=== PATIENT | female | born 1935 | race Caucasian/White ===

== ENCOUNTER → 2016-11-04 | Outpatient (CLI) | payer OTHER ==
[~2016-11-04] MED LIST: ACETAMINOPHEN325 M1 PO; ADULT LOW DOSE81 MG PO; ALDACTONE25 MG PO; APAP W/CODEINE1 TA2 PO; APAP650 PO; ARICEPT 5 MG TAB5 MG PO; CALCIUM 500 +1 EAC5 PO; CALCIUM PO; COLACE100 MG PO; CORTEF5 MG PO; COUMADIN 3 MG TA3 M1 PO; DESYREL100 MG PO; ENOXAPARIN40 MG/0.1 SUBQ; ETODOLAC 400 M400 M1 PO; ETODOLAC 400 M400 MG PO; FLEXERIL PO; FOLIC ACID1 MG PO; FOSAMAX 70 MG T70 M1 PO; HYDROCODON-ACE1 EAC7 PO; HYDROCODONE-AP1 EAC6 PO; HYDROCORTISONE PO; HYDROXYCHLOROQ200 M1 PO; K-DUR10 ME1 PO; KEFLEX500 MG PO; KLOR-CON 1010 MEQ PO; LAMICTAL XR100 MG PO; LASIX 20 MG TAB20 MG PO; LASIX 40 MG TAB40 M1 PO; LASIX 40 MG TAB40 M2 PO; LAXATIVE5 M1 PO; LOSARTAN POTASS25 MG PO; LUMIGAN2.5 M1 OPHTHALMIC; MELATONIN5 M1 PO; METAMUCIL0.52 GM PO; METHOTREXATE 22.5 MG PO; MIRALAX255 GM PO; NEURONTIN 300300 M1 PO; NEURONTIN 300M300 M2 PO; NORCO 5-325 TA1 EACH PO; PERCOCET 5-3251 EACH PO; PRILOSEC 20 MG20 MG PO; PROPRANOLOL 1010 MG PO; ROBAXIN 750 MG750 MG PO; ROXICODONE5 M1 PO; SERTRALINE HCL50 MG PO; SIMVASTATIN40 MG PO; TRAMADOL 50 MG50 MG PO; TRAZODONE 150150 M1 PO; TYLENOL EX-STR500 M2 PO; VITAMIN D1000 UNI1 PO; VITAMIN D10000 UNIT PO
== END ==
LOC: HYPER 07:16
DX: S81.801D Unspecified open wound, right lower leg, subsequent encounter (principal); I82.593 Chronic embolism and thrombosis of other specified deep vein of lower extremity, bilateral; K21.9 Gastro-esophageal reflux disease without esophagitis; F31.9 Bipolar disorder, unspecified; Z96.653 Presence of artificial knee joint, bilateral; Z90.710 Acquired absence of both cervix and uterus; Z96.641 Presence of right artificial hip joint; Z96.619 Presence of unspecified artificial shoulder joint; Z72.89 Other problems related to lifestyle; X58.XXXD Exposure to other specified factors, subsequent encounter

== ENCOUNTER 2017-02-24 16:44 | Inpatient (IN) | payer OTHER ==
[~2017-02-24] VITALS: Ht 162.6 cm; Wt 85.7 kg
--- NOTE | ~2017-02-24 | EKG ---
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 : 1935 Requested By: Abby Hernandez Order Number: [id number] MD: Keven Sheehan Measurements Intervals [place] Rate: 87 P: 45 [place]: 190 QRS: 4 QRSD: 83 T: 90 QT: 353 QTc: 425 Interpretive Statements Sinus rhythm Atrial premature complex Compared to ECG 05/08/2011 07:23:46 Atrial premature complex(es) now present Electronically Signed On 02-25-2017 7:33:15 CDT by Keven Sheehan [email or web address] <ELECTRONICALLY SIGNED> By: Keven Sheehan MD, [facility] 02/25/17 0733 54 54 Keven Sheehan MD, [facility] /EPI
[~2017-02-24 16:44] MED LIST changes: +ASPIR 8181 MG PO; +OXYBUTYNIN 5 MG5 M2 PO; +TIMOLOL MA0.25 %/5 M OTIC
[2017-02-24 16:45] VITALS: BP 136/72
[2017-02-24 18:13] LABS: URINE BILIRUBIN NEGATIVE (Negative); URINE BLOOD NEGATIVE (Negative); URINE COLOR YELLOW; URINE GLUCOSE-RANDOM* NEGATIVE (Negative); URINE KETONES 1+ (Negative); URINE NITRITE NEGATIVE (Negative); URINE PROTEIN (DIPSTICK) NEGATIVE (Negative); URINE UROBILINOGEN 0.2 E.U./dl (0.2-1.0)
[2017-02-24 18:19] LABS: HEMOGLOBIN 11.6 gm/dL (12.0-15.0); MCH 27.6 pg (26.0-34.0); MCHC 32.3 g/dL (28.0-37.0); MCV 85.5 fL (80.0-100.0); PLATELET COUNT 209 thou/uL (150-400); RBC 4.21 mil/uL (4.20-5.00); RDW 25.8 % (10.5-14.5); WBC 5.3 thou/uL (4.0-11.0)
[2017-02-24 18:20] LABS: MANUAL DIFF YES
[2017-02-24 18:24] LABS: ANION GAP 13 mmol/L (7-16); BUN 11 mg/dL (7-18); CHLORIDE 100 mmol/L (98-107); CO2 24 mmol/L (21-32); GLUCOSE 108 mg/dL (74-106); POTASSIUM 3.9 mmol/L (3.5-5.1); SODIUM 137 mmol/L (136-145)
[2017-02-24 18:25] LABS: PROTIME 10.8 Seconds (9.3-11.4)
[2017-02-24 18:30] LABS: ALBUMIN 3.9 g/dL (3.4-5.0); ALKALINE PHOSPHATASE 55 U/L (46-116); SGOT 41 U/L (15-37); SGPT 23 U/L (30-65); TOTAL BILIRUBIN 0.7 mg/dL (<0.1-1.0); TROPONIN-I < 0.04 ng/mL (<0.04-0.07)
[2017-02-24 18:39] LABS: ABSOLUTE NEUTROPHILS 3.5 thou/uL (1.4-8.2); TOTAL CELL COUNT 100
[2017-02-24 18:40] LABS: ANISOCYTOSIS 1+
[2017-02-24 20:20] VITALS: BP 121/78
[2017-02-24 20:40] VITALS: BP 129/44
[2017-02-24] MEDS ORDERED: XARELTO20 MG PO (21:01)
[2017-02-25 05:10] VITALS: BP 146/63
[2017-02-25 07:20] VITALS: BP 122/68
[2017-02-25 15:25] VITALS: BP 129/50
[2017-02-25 19:40] VITALS: BP 144/69
[2017-02-26 04:15] VITALS: BP 146/67
[2017-02-26 07:01] LABS: HEMATOCRIT 31.6 % (37.0-47.0); HEMOGLOBIN 10.5 gm/dL (12.0-15.0); MCH 27.9 pg (26.0-34.0); MCHC 33.3 g/dL (28.0-37.0); RBC 3.76 mil/uL (4.20-5.00); RDW 25.1 % (10.5-14.5); WBC 7.9 thou/uL (4.0-11.0)
[2017-02-26 07:23] LABS: CALCIUM 8.1 mg/dL (8.5-10.1); CREATININE 0.7 mg/dL (0.6-1.0); POTASSIUM 4.2 mmol/L (3.5-5.1)
[2017-02-26 07:28] VITALS: BP 143/60
[2017-02-26 15:35] VITALS: BP 136/61
[2017-02-26 19:50] VITALS: BP 137/63
[2017-02-27 04:52] VITALS: BP 156/68
[2017-02-27 08:31] VITALS: BP 148/70
[2017-02-27] MEDS ORDERED: AUGMENTIN 875875 MG PO (10:45)
[2017-02-27] MEDS ORDERED: PROBIOTIC1 EAC1 PO (10:45)
[2017-02-27] MEDS ORDERED: VENTOLIN HFA 1818 GM INH (10:46)
[2017-02-27 10:55] VITALS: BP 148/70
[2017-02-27 11:35] VITALS: BP 148/70
[2017-02-27 12:45] VITALS: BP 148/70
== END 2017-02-27 12:47 | disposition home health service (06) | DRG 871 ==
LOC: ER 16:44 → EROBS 19:12 → 4S 19:12
PROVIDERS: Family Medicine; Physician Assistant
DX: A41.9 Sepsis, unspecified organism (principal); J18.9 Pneumonia, unspecified organism; J96.01 Acute respiratory failure with hypoxia; L03.119 Cellulitis of unspecified part of limb; I82.409 Acute embolism and thrombosis of unspecified deep veins of unspecified lower extremity; K21.9 Gastro-esophageal reflux disease without esophagitis; M19.90 Unspecified osteoarthritis, unspecified site; M06.9 Rheumatoid arthritis, unspecified; D64.9 Anemia, unspecified; H40.9 Unspecified glaucoma; F31.9 Bipolar disorder, unspecified; Z96.642 Presence of left artificial hip joint; E78.5 Hyperlipidemia, unspecified; I87.8 Other specified disorders of veins; G89.29 Other chronic pain; S81.812A Laceration without foreign body, left lower leg, initial encounter; Z96.612 Presence of left artificial shoulder joint; Z96.653 Presence of artificial knee joint, bilateral; X58.XXXA Exposure to other specified factors, initial encounter; Y93.89 Activity, other specified; Y92.89 Other specified places as the place of occurrence of the external cause; Y99.8 Other external cause status; Z90.710 Acquired absence of both cervix and uterus; Z90.49 Acquired absence of other specified parts of digestive tract; Z98.42 Cataract extraction status, left eye; Z98.41 Cataract extraction status, right eye; Z88.2 Allergy status to sulfonamides; Z88.8 Allergy status to other drugs, medicaments and biological substances; Z83.3 Family history of diabetes mellitus; Z79.82 Long term (current) use of aspirin; Z79.899 Other long term (current) drug therapy
CPT/HCPCS: 10195

== ENCOUNTER 2017-02-28 14:43 | Inpatient (IN) | payer OTHER ==
[~2017-02-28] VITALS: Ht 157.5 cm; Wt 81.6 kg
--- NOTE | ~2017-02-28 | HC ---
[facility] [place] [address] CONSULTATION Name: JAI JIM Room #: 428-P ADM IN M.R.#: [id number] Admission: 02/28/17 Attend Phys: Maribell Beavers MD Discharge: Date of : 37 Report #: [id number] THIS REPORT FOR: //name// CC: Fernie Beavers DATE OF SERVICE: 02/28/2017 REFERRING PROVIDER: Maribell Beavers M.D. REASON FOR CONSULTATION: Pneumonia. CHIEF COMPLAINT: Weakness. HISTORY OF PRESENT ILLNESS: Our group was asked to evaluate the patient in consultation while hospitalized at [facility], seen in the Emergency Department room #3, at the request of the consulting providers. The patient is a very pleasant 81-year-old woman without any past pulmonary history who was just recently hospitalized and discharged yesterday after a 3-day hospital stay for pneumonia. The patient was discharged home on a handheld albuterol inhaler as well as antibiotics. The patient noted this morning an inability to even stand, was feeling too weak, continues to have some cough, but difficulty clearing sputum. States she could not sleep at all last night due to significant wheezing. Denies any fevers, chills or sweats at this time. No prior pulmonary history. The patient is a never smoker and has no chronic respiratory ailments. She typically lives alone and had to call an ambulance to come assist with her getting into the hospital. Of note, the patient has had some difficulty with recurrent cellulitis. She states she often will have clumsy walking and her leg may be injured on her walker and also had some chronic lower extremity edema, which is likely contributing to this. Currently is also on therapy for the cellulitis. ALLERGIES: Include TAPE, SULFA AND ERYTHROMYCIN. PAST MEDICAL HISTORY: 1. Obesity. 2. History of lower extremity cellulitis. 3. Recent pneumonia. 4. History of deep venous thrombosis, currently chronically anticoagulated on Xarelto. 5. Glaucoma. 6. Hyperlipidemia. 7. Gastroesophageal reflux disease. 8. History of orthostatic hypotension. 9. Osteoarthritis. 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 No significant alcohol consumption. FAMILY HISTORY: Noncontributory due to advanced age. REVIEW OF SYSTEMS: CONSTITUTIONAL: Notes no fever or chills. ENT: No upper respiratory congestion, rhinorrhea or dysphagia. CARDIOVASCULAR: Denies any chest pains or palpitations. GASTROINTESTINAL: No nausea, vomiting, diarrhea, constipation or abdominal pain. GENITOURINARY: No urinary frequency, dysuria, hematuria. INTEGUMENT: Has recent cellulitis noted with left lower extremity dressing. MUSCULOSKELETAL: Generalized weakness with an inability to stand earlier today. PHYSICAL EXAMINATION: VITAL SIGNS: The patient's temperature is 99.8, pulse 90, respiratory rate 22, blood pressure 137/50, oxygen saturation 90 to 91 on 2 liters nasal cannula. GENERAL: This is a pleasant, obese, elderly woman, appears obviously fatigued and weak, but in no other distress. ENT: Clear oropharynx. No thrush. NECK: Supple, no lymphadenopathy. LUNGS: Reveal diffuse expiratory rhonchi and wheezes noted throughout. No inspiratory crackles appreciated. Respirations do not appear labored at rest. CARDIOVASCULAR: Heart was regular. I could not appreciate any murmurs, although difficult to auscultate due to the noisy respirations. ABDOMEN: Obese, soft, nontender, no masses, no hepatosplenomegaly noted. EXTREMITIES: Revealed 2+ lower extremity edema. The left lower extremity had a dressing over the anterior surface distally, I did not remove it to evaluate. LABORATORY DATA: Chemistry profile within reasonable limits. Liver enzymes slightly low, but otherwise normal. Calcium at 8.0, total protein 5.9, albumin 3.2. ProBNP 3500, INR 1.1. White blood cell count 7000, hemoglobin 10, hematocrit 31, platelet count 158. 22% lymphocytes, 10% monocytes, no significant eosinophilia. Arterial blood gas on 3 liters revealed pH of 7.48, pCO2 of 38, pO2 of 58, bicarbonate of 27. IMPRESSION: 1. Community-acquired pneumonia with failure of outpatient management either due to ongoing bronchospasm or associated with microorganism refractory to current therapy. I agree with plans to broaden antimicrobial therapy, continue with bronchodilators and continue with systemic steroids and await further cultures and nasal swab for respiratory viral panel. 2. History of deep venous thrombosis. 3. Acute hypoxemic respiratory failure secondary to the above. [facility] [address] [place] [address] CONSULTATION Name: JAI JIM Room #: 428-P [facility] IN M.R.#: [id number] Admission: 02/28/17 Attend Phys: Maribell Beavers MD Discharge: Date of : 37 Report #: [id number] 4. Obesity. 5. History of hypertension. SUGGESTIONS: As outlined above. We will follow along with you, add continuous oximetry while on critical care telemetry floor. Thank you for requesting our suggestions. <ELECTRONICALLY SIGNED> By: Dewayne Wing MD 03/03/17 1453 [id number] 0131 Dewayne Wing MD /nt
--- NOTE | ~2017-02-28 | H ---
[facility] [place] [address] HISTORY AND PHYSICAL Name: JAI JIM Room #: 428-P ADM IN M.R.#: [id number] Admission: 02/28/17 Attend Phys: Maribell Beavers MD Discharge: Date of : 37 Report #: [id number] THIS REPORT FOR: //name// CC: Fernie Beavers DATE OF SERVICE: 02/28/2017 CHIEF COMPLAINT: Weakness and shortness of breath. HISTORY OF PRESENT ILLNESS: The patient is a 81-year-old female, with multiple medical problems, who was just hospitalized here for pneumonia, and discharged home yesterday. The patient was treated for community-acquired pneumonia. The patient was discharged home on oral antibiotics. She stated that she was supposed to go to the snf in few days. She currently is at home. She has been very weak, and was unable to take care of herself. She presented to the emergency room. In the ER, the patient has low grade fever, oxygen saturation is in mid 80s, chest x-ray shows cardiomegaly with possible vascular congestion. No focal infiltrates are reported. On oxygen that was administered in the emergency room, the patient feels somewhat better. She has been hemodynamically stable. PAST MEDICAL HISTORY: 1. Rheumatoid arthritis. 2. Bipolar disease and depression. 3. Orthostatic hypotension. 4. Deep venous thrombosis. 5. Questionable adrenal insufficiency. 6. Chronic bilateral lower extremity ulcers. CURRENT MEDICATIONS: Reviewed and documented in the patient's chart. Please refer to the medication reconciliation list. FAMILY HISTORY: Reviewed and not pertinent to the patient's current condition. SOCIAL HISTORY: The patient lives by herself. She does not smoke cigarettes and does not drink alcohol. PHYSICAL EXAMINATION: GENERAL: The patient is an elderly female, who is in no apparent distress. VITAL SIGNS: Her blood pressure is 137/50, heart rate is 91, respiration is 22, temperature is 99.0. HEENT: Pupils are equal. Eye movements are normal. The patient has anicteric sclerae. NECK: Supple. Oral mucosa is moist. Ear examination is deferred. The patient [facility] [address] [place] [address] HISTORY AND PHYSICAL Name: JAI JIM Room #: 428-P [facility] IN .R.#: [id number] Admission: 02/28/17 Attend Phys: Maribell Beavers MD Discharge: Date of : 37 Report #: [id number] has no JVD. Thyromegaly is not palpated. RESPIRATORY: The patient has coarse respiratory sounds bilaterally. She has scattered crackles. CARDIOVASCULAR: The patient has regular rhythm and rate. She has no murmurs, gallops, or rubs. GASTROINTESTINAL: Abdomen is soft, nondistended, and nontender. Bowel sounds are present. The patient has no hepatomegaly or splenomegaly. MUSCULOSKELETAL: The patient has normal range of motion. She has 1+ pitting edema in the lower extremities. NEUROLOGIC: The patient is alert and oriented times 2. She has no motor or sensory deficits. SKIN: The patient has chronic stasis discoloration on lower extremities. LABORATORY DATA: Basic metabolic profile, the patient has mild hypokalemia with potassium of 3.4. Rest of the BMP is normal. BNP is elevated at 3521. Albumin is 3.2. On CBC, white count is normal at 7.5, hemoglobin 10.3, hematocrit 31.4, platelets 158. On chest x-ray, the patient has bilateral vascular congestion, without focal infiltrates. Chest x-ray also shows cardiomegaly. On EKG, the patient has normal sinus rhythm. ASSESSMENT AND PLAN: 1. Healthcare-associated pneumonia. As noted, the patient was discharged home yesterday after she was treated here for community-acquired pneumonia, and her condition became worse. The patient will be admitted to the hospital, and will be treated with broad spectrum antibiotics. New blood cultures will be obtained. 2. Acute respiratory failure due to above, with oxygen saturation in mid 80s. The patient will be continued on supplemental oxygen, and breathing treatments. Senior Search Marketing Analyst is consulted. Input is very much appreciated. 3. History of adrenal insufficiency, details are not specified. Adrenocorticotropic hormone stimulation test from 2010 was abnormal. The patient is on hydrocortisone at home, 5 mg at dinner. While here, and during respiratory failure, we will use stress dose steroids IV. 4. History of deep venous thrombosis. A few months ago, the patient had bilateral Doppler ultrasound, that was negative. The patient is on Xarelto, that will be continued unchanged. 5. No previous history of congestive heart failure. Now, the patient presents with cardiomegaly on chest x-ray, and bilateral basilar vascular congestion. Cardiac echo will be obtained for further evaluation. The patient does not have clear evidence of volume overload at this time. [facility] [address] [place] [address] HISTORY AND PHYSICAL Name: JAI JIM Room #: 428-P ADM IN M.R.#: [id number] Admission: 02/28/17 Attend Phys: Maribell Beavers MD Discharge: Date of : 37 Report #: [id number] 6. Deep venous thrombosis prophylaxis. The patient is already on Xarelto. 7. Debility and weakness. Physical therapy and disease case manager rn evaluation. By: 1729 03 Maribell Beavers MD /nt
--- NOTE | ~2017-02-28 | 2DMMODE ---
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 Room #: 428 Blood Pressure: 156/77 mmHg HR: 65 bpm Rhythm: NSR Other Information Study Quality: Adequate Indications Dyspnea, cardiomegaly on Xray 2D Dimensions RVDd: 37.74 mm LVEF(%): 61.57 (>50%) IVSd: 9.98 (7-11mm) LVOT Diam: 21.49 (18-24mm) LVDd: 49.82 mm PWd: 8.57 (7-11mm) LVDs: 33.28 (25-40mm) Aortic Root: 34.23 mm Moses's LVEF: 61.57 % Volumes Left Atrial Volume (Systole) Single Plane 4CH: 68.85 mL Single Plane 2CH: 56.66 mL LA ESV Index: 39.00 mL/m2 Aortic Valve AoV Peak Tariq.: 1.66 m/s AO Peak Gr.: 10.99 mmHg LVOT Max P.89 mmHg LVOT Max V: 1.21 m/s STEPAN Vmax: 2.65 cm2 Mitral Valve E/A Ratio: 0.8 [facility] [address] [place] [address] 2 D/M-MODE ECHOCARDIOGRAM Name: JAI JIM Room #: 428-P [facility] IN [facility]#: [id number] Admission: 02/28/17 Attend Phys: Maribell Beavers Discharge: Date of : 37 Date of Service: 03/01/17 1109 Report #: [id number] MV Decel. Time: 241.66 ms MV E Max Tariq.: 0.87 m/s MV A Tariq.: 1.06 m/s MV PHT: 70.08 ms IVRT: 83.04 ms Pulmonary Valve PV Peak Tariq.: 0.91 m/s PV Peak Gr.: 3.29 mmHg Pulmonary Vein P Vein S: 0.77 m/s P Vein A: 0.44 m/s P Vein D: 0.34 m/s P Vein A Dur.: 115.3 msec P Vein S/D Ratio: 2.26 Tricuspid Valve TR Peak Tariq.: 2.96 m/s RAP Estimate: 5.00 mmHg TR Peak Gr.: 35.14 mmHg RVSP: 40.00 mmHg Left Ventricle The left ventricle is normal size. There is normal LV segmental wall motion. There is normal left ventricular wall thickness. Left ventricular systolic function is normal. LVEF is 55%. Grade I - abnormal relaxation pattern. Right Ventricle The right ventricle is normal size. The right ventricular systolic function is normal. Atria Left atrium is mildly dilated. The right atrium size is normal. Aortic Valve The aortic valve is not well visualized but appears grossly normal. No aortic regurgitation is present. There is no aortic valvular stenosis. Mitral Valve The mitral valve is normal in structure. Mild mitral regurgitation. Tricuspid Valve The tricuspid valve is normal in structure. There is mild tricuspid regurgitation. The right atrial pressure is estimated at 5 mmHg. There is mild-moderate pulmonary hypertension with an estimated PAP of 40mmHg. [place] [id number] 2 D/M-MODE ECHOCARDIOGRAM Name: JAI JIM Room #: 428-P [facility] IN .R.#: [id number] Admission: 02/28/17 Attend Phys: Maribell Beavers Discharge: Date of : 37 Date of Service: 03/01/17 1109 Report #: [id number] Pulmonic Valve Pulmonic valve is not well visualized. Great Vessels The aortic root is normal in size. Ascending aorta is not well visualized. IVC is normal in size and collapses >50% with inspiration. Pericardium There is no pericardial effusion. <Conclusion> Left ventricular systolic function is normal. There is normal LV segmental wall motion. LVEF is 55%. Grade I diastolic dysfunction Left atrium is mildly dilated. The aortic valve is not well visualized but appears grossly normal. There is no aortic valvular stenosis or insufficiency. The mitral valve is normal in structure .Mild mitral regurgitation. Estimated pulmonary artery pressure of 40mmHg. There is no pericardial effusion. <ELECTRONICALLY SIGNED> By: Keven Sheehan MD, FACC 03/01/17 1109 1109 1109 Keven Sheehan MD, FACC /INF
--- NOTE | ~2017-02-28 | EKG ---
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
[2017-02-28 14:43] VITALS: BP 137/50
[~2017-02-28 14:43] MED LIST changes: +AUGMENTIN 875875 MG PO; +PROBIOTIC1 EAC1 PO; +VENTOLIN HFA 1818 GM INH; +XARELTO20 MG PO
[2017-02-28 15:39] LABS: ABG SAMPLE TYPE ARTERIAL; BE(vivo) 3.4 mmol/L (-2 to +3); HCO3 27.1 mmol/L (22.0-26.0); LACTATE 1.15 mmol/L (0.5-2.0); O2(CT) 14.2 mL/dL (15.0-23.0); O2Hb 90.2 % (92.0-98.0); PCO2 37.6 mmHg (35.0-45.0); pH 7.475 (7.360-7.450); sO2 91.9 % (92.0-98.0); tCO2 28.2 mmol/L (24.0-30.0)
[2017-02-28 15:44] LABS: STICK SITE L.RADIAL
[2017-02-28 16:10] LABS: CREATININE 0.9 mg/dL (0.6-1.0); POTASSIUM 3.4 mmol/L (3.5-5.1)
[2017-02-28 16:17] LABS: ALBUMIN 3.2 g/dL (3.4-5.0); TOTAL BILIRUBIN 0.5 mg/dL (<0.1-1.0); TOTAL PROTEIN 5.9 g/dL (6.4-8.2); TROPONIN-I 0.07 ng/mL (<0.04-0.07)
[2017-02-28 16:50] LABS: BASOPHILS 0.2 % (0.0-2.0); EOSINOPHILS 0.1 % (0.0-3.0); HEMATOCRIT 31.4 % (37.0-47.0); HEMOGLOBIN 10.3 gm/dL (12.0-15.0); LYMPHOCYTES 21.7 % (24.0-44.0); MCH 27.7 pg (26.0-34.0); MCHC 32.9 g/dL (28.0-37.0); MCV 84.1 fL (80.0-100.0); MONOCYTES 10.7 % (1.0-8.0); PLATELET COUNT 158 thou/uL (150-400); POLYS 67.3 % (36.0-66.0); RBC 3.73 mil/uL (4.20-5.00); RDW 26.1 % (10.5-14.5); WBC 7.5 thou/uL (4.0-11.0)
[2017-02-28 16:56] LABS: MANUAL DIFF NO
[2017-02-28 17:05] LABS: APTT 25.1 Seconds (24.5-32.8); INR 1.1; PROTIME 10.7 Seconds (9.3-11.4)
[2017-02-28 17:10] LABS: OVALOCYTES 1+
[2017-02-28 17:11] LABS: ANISOCYTOSIS 2+; MICROCYTES 1+
[2017-02-28 19:30] VITALS: BP 166/85
[2017-03-01 04:00] VITALS: BP 156/77
[2017-03-01 05:04] LABS: ABSOLUTE NEUTROPHILS 5.1 thou/uL (1.4-8.2); BASOPHILS 0.1 % (0.0-2.0); HEMATOCRIT 33.3 % (37.0-47.0); HEMOGLOBIN 10.8 gm/dL (12.0-15.0); LYMPHOCYTES 10.3 % (24.0-44.0); MCH 27.3 pg (26.0-34.0); MCHC 32.3 g/dL (28.0-37.0); MCV 84.6 fL (80.0-100.0); MONOCYTES 5.1 % (1.0-8.0); PLATELET COUNT 153 thou/uL (150-400); POLYS 84.5 % (36.0-66.0); RBC 3.94 mil/uL (4.20-5.00); RDW 25.5 % (10.5-14.5); WBC 6.1 thou/uL (4.0-11.0)
[2017-03-01 05:10] LABS: MANUAL DIFF NO
[2017-03-01 05:24] LABS: CALCIUM 7.9 mg/dL (8.5-10.1); CREATININE 0.9 mg/dL (0.6-1.0); POTASSIUM 3.6 mmol/L (3.5-5.1)
[2017-03-01 08:50] LABS: ANISOCYTOSIS 2+; OVALOCYTES 1+; POIKILOCYTOSIS 1+
[2017-03-01 08:51] LABS: POLYCHROMASIA OCCASIONAL
[2017-03-01 16:00] VITALS: BP 138/60
[2017-03-01 20:00] VITALS: BP 138/57
[2017-03-02 01:04] VITALS: BP 138/57
[2017-03-02 04:30] VITALS: BP 127/65
[2017-03-02 07:45] VITALS: BP 122/58
[2017-03-02 20:00] VITALS: BP 129/54
[2017-03-02 22:11] VITALS: BP 129/54
[2017-03-03 04:08] VITALS: BP 156/60
[2017-03-03 06:41] LABS: HEMOGLOBIN 10.5 gm/dL (12.0-15.0); MCH 27.6 pg (26.0-34.0); MCHC 32.8 g/dL (28.0-37.0); MCV 84.1 fL (80.0-100.0); RBC 3.8 mil/uL (4.20-5.00); RDW 25.2 % (10.5-14.5); WBC 7.4 thou/uL (4.0-11.0)
[2017-03-03 06:54] LABS: CALCIUM 8.9 mg/dL (8.5-10.1)
[2017-03-03 08:04] VITALS: BP 147/53
[2017-03-03 15:20] VITALS: BP 118/63
[2017-03-03 20:30] VITALS: BP 153/105
[2017-03-04 04:30] VITALS: BP 150/86
[2017-03-04 04:36] LABS: HEMATOCRIT 31.4 % (37.0-47.0); HEMOGLOBIN 10.3 gm/dL (12.0-15.0); MCH 27.6 pg (26.0-34.0); MCHC 32.8 g/dL (28.0-37.0); MCV 84.2 fL (80.0-100.0); RBC 3.73 mil/uL (4.20-5.00); RDW 24.9 % (10.5-14.5)
[2017-03-04 04:52] LABS: CALCIUM 9.2 mg/dL (8.5-10.1); POTASSIUM 4.5 mmol/L (3.5-5.1)
[2017-03-04 07:31] VITALS: BP 169/61
[2017-03-04] MEDS ORDERED: NYSTATIN 1100000 U/M SWISH&SPIT (14:33)
[2017-03-04] MEDS ORDERED: MUCINEX TA600 MG/TA2 PO (14:33)
[2017-03-04] MEDS ORDERED: MIRALAX17 GM PO (14:33)
[2017-03-04] MEDS ORDERED: LEVAQUIN 500 M500 M2 PO (14:33)
[2017-03-04] MEDS ORDERED: DUONEB 2.5-0.5 M3 ML INH (14:33)
[2017-03-04] MEDS ORDERED: CEPACOL SORE T1 EAC7 PO (14:33)
[2017-03-04] MEDS ORDERED: DULCOLAX5 MG PO ×2 (14:33→14:40)
[2017-03-04] MEDS ORDERED: PREDNISONE 10 M10 MG PO (14:38)
== END 2017-03-04 17:50 | DRG 177 ==
LOC: ER 14:43 → EROBS 17:04 → 4E 17:04
PROVIDERS: Hospitalist; Internal Medicine Endocrinology, Diabetes & Metabolism; Physician Assistant
DX: J69.0 Pneumonitis due to inhalation of food and vomit (principal); J96.01 Acute respiratory failure with hypoxia; I50.33 Acute on chronic diastolic (congestive) heart failure; J98.11 Atelectasis; L97.929 Non-pressure chronic ulcer of unspecified part of left lower leg with unspecified severity; L97.919 Non-pressure chronic ulcer of unspecified part of right lower leg with unspecified severity; E27.40 Unspecified adrenocortical insufficiency; J15.6 Pneumonia due to other Gram-negative bacteria; K59.00 Constipation, unspecified; I27.2 Other secondary pulmonary hypertension; K21.9 Gastro-esophageal reflux disease without esophagitis; M19.90 Unspecified osteoarthritis, unspecified site; H40.9 Unspecified glaucoma; E66.9 Obesity, unspecified; E78.5 Hyperlipidemia, unspecified; I11.0 Hypertensive heart disease with heart failure; F31.9 Bipolar disorder, unspecified; Z96.653 Presence of artificial knee joint, bilateral; Z96.641 Presence of right artificial hip joint; Z96.612 Presence of left artificial shoulder joint; Z60.2 Problems related to living alone; Z91.048 Other nonmedicinal substance allergy status; Z86.718 Personal history of other venous thrombosis and embolism; Z90.49 Acquired absence of other specified parts of digestive tract; Z90.710 Acquired absence of both cervix and uterus; Z87.81 Personal history of (healed) traumatic fracture; Z98.41 Cataract extraction status, right eye; Z98.42 Cataract extraction status, left eye; Z68.32 Body mass index [BMI] 32.0-32.9, adult; Z79.01 Long term (current) use of anticoagulants; Z79.899 Other long term (current) drug therapy; Z88.1 Allergy status to other antibiotic agents; Z88.2 Allergy status to sulfonamides
CPT/HCPCS: 10183

== ENCOUNTER → 2017-03-27 | Outpatient (CLI) | payer OTHER ==
[~2017-03-27] MED LIST changes: +CEPACOL SORE T1 EAC7 PO; +DULCOLAX5 MG PO; +DUONEB 2.5-0.5 M3 ML INH; +LEVAQUIN 500 M500 M2 PO; +MIRALAX17 GM PO; +MUCINEX TA600 MG/TA2 PO; +NYSTATIN 1100000 U/M SWISH&SPIT; +PREDNISONE 10 M10 MG PO
== END ==
LOC: RAD 08:18
DX: J18.9 Pneumonia, unspecified organism (principal)

== ENCOUNTER 2017-05-23 19:00 | Inpatient (IN) | payer OTHER ==
[~2017-05-23] VITALS: Ht 157.5 cm; Wt 88.6 kg
--- NOTE | ~2017-05-23 | EKG ---
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
--- NOTE | ~2017-05-23 | 2DMMODE ---
[facility] [address] [place] [address] 2 D/M-MODE ECHOCARDIOGRAM Name: JAI JIM Josefa Room #: 453-P [facility] IN ..#: [id number] Admission: 05/23/17 Attend Phys: Sorin Mathew, Discharge: Date of : 39 Date of Service: 05/28/17 1231 Report #: [id number] THIS REPORT FOR: //name// APPROVED REPORT Study performed: 05/28/2017 09:13:13 EXAM: Comprehensive 2D, Doppler, and color-flow Echocardiogram Patient Location: Bedside Room #: [facility] Status: routine BSA: 1.89 HR: 72 bpm BP: 93/67 mmHg Other Information Study Quality: Fair Indications Edema Hx HTN, syncope 2D Dimensions RVDd: 38.55 mm LVEF(%): 72.93 (>50%) IVSd: 12.68 (7-11mm) LVOT Diam: 19.76 (18-24mm) LVDd: 35.91 mm PWd: 13.17 (7-11mm) Ascending Ao: 28.08 (22-36mm) LVDs: 21.14 (25-40mm) Aortic Root: 29.34 mm IVC: 2.00 mm Moses's LVEF: 72.93 % Volumes Left Atrial Volume (Systole) Single Plane 4CH: 56.79 mL Single Plane 2CH: 67.31 mL LA ESV Index: 37.00 mL/m2 Aortic Valve AoV Peak Tariq.: 1.54 m/s AO Peak Gr.: 9.48 mmHg LVOT Max P.36 mmHg LVOT Max V: 1.16 m/s STEPAN Vmax: 2.30 cm2 Mitral Valve E/A Ratio: 0.8 MV Decel. Time: 213.12 ms MV E Max Tariq.: 0.79 m/s [facility] [place] [address] 2 D/M-MODE ECHOCARDIOGRAM Name: JAI JIM Room #: 453-P [facility] IN ..#: [id number] Admission: 05/23/17 Attend Phys: Sorin Mathew, Discharge: Date of : 39 Date of Service: 05/28/17 1231 Report #: [id number] MV A Tariq.: 0.95 m/s MV PHT: 61.80 ms IVRT: 78.43 ms Pulmonary Vein P Vein S: 0.59 m/s P Vein A: 0.34 m/s P Vein D: 0.35 m/s P Vein A Dur.: 147.6 msec P Vein S/D Ratio: 1.69 Tricuspid Valve TR Peak Tariq.: 2.73 m/s RAP Estimate: 5.00 mmHg TR Peak Gr.: 29.78 mmHg PA Pressure: 35.00 mmHg Left Ventricle The left ventricle is normal size. Mild concentric left ventricular hypertrophy. The left ventricular systolic function is normal. The left ventricular ejection fraction is within the normal range. LVEF is 60%. Grade I - abnormal relaxation pattern. Right Ventricle The right ventricle is normal size. The right ventricular systolic function is normal. Atria Left atrium is dilated. Right atrium is dilated. Aortic Valve The aortic valve is not well visualized. No aortic regurgitation is present. There is no aortic valvular stenosis. Mitral Valve The mitral valve is normal in structure. Trace mitral regurgitation. No evidence of mitral valve stenosis. Tricuspid Valve The tricuspid valve is normal in structure. There is trace tricuspid regurgitation. The right atrial pressure is estimated at 5 mmHg. There is mild pulmonary hypertension with an estimated PAP of 35 mmHg. Pulmonic Valve The pulmonary valve is normal in structure. There is no pulmonic valvular regurgitation. Great Vessels [facility] [address] [place] [address] 2 D/M-MODE ECHOCARDIOGRAM Name: JAI JIM Room #: 453-P [facility] IN .R.#: [id number] Admission: 05/23/17 Attend Phys: Sorin Mathew, Discharge: Date of : 39 Date of Service: 05/28/17 1231 Report #: [id number] The aortic root is normal in size. The ascending aorta is normal in size. IVC is normal in size and collapses >50% with inspiration. Pericardium There is no pericardial effusion. <Conclusion> The left ventricle is normal size. Mild concentric left ventricular hypertrophy. The left ventricular systolic function is normal. The left ventricular ejection fraction is within the normal range. The right ventricle is normal size. Grade I - abnormal relaxation pattern. There is no aortic valvular stenosis. Trace mitral regurgitation. There is mild pulmonary hypertension with an estimated PAP of 35 mmHg. <ELECTRONICALLY SIGNED> By: Arsh Simon MD 05/28/17 1231 1231 1231 Arsh Simon MD /INF
--- NOTE | ~2017-05-23 | HC ---
[facility] [place] [address] CONSULTATION Name: JAI JIM Room #: 451-P [facility] IN M.R.#: [id number] Admission: 05/23/17 Attend Phys: Sorin Mathew MD Discharge: Date of : 39 Report #: [id number] THIS REPORT FOR: //name// CC: Fernie Mathew HISTORY OF PRESENT ILLNESS: The patient is a 81-year-old white female who was admitted from an assisted living facility. She was having problems with frequent falls. She notes "I just go down." Denies any loss of consciousness. She is being further evaluated. She has been diagnosed with lower extremity cellulitis ____ antibiotics. She has adrenal insufficiency and is on chronic steroids. She is on Xarelto with history of DVT. She does have bilateral lower extremity weakness noted and MRI scan has been ordered regarding the lumbar spine. We are seeing her in rehabilitation medicine consultation. Records do state that she has a history of orthostatic hypotension. MEDICATIONS: Per the MAR. PAST MEDICAL HISTORY: Include orthostatic hypotension, bipolar depression, rheumatoid and osteoarthritis, DVT, [id number] respiratory failure. PAST SURGICAL HISTORY: Includes bilateral total knees, total left shoulder, total hysterectomy, cholecystectomy, appendectomy, left total thumb, bilateral rotator cuff repair. ALLERGIES: SULFA and ERYTHROMYCIN. HABITS: No history of tobacco, alcohol abuse. SOCIAL HISTORY: Lives in an assisted living facility. She has a front-wheeled walker as well as a 4-wheeled walker. She noted that the staff was discouraging the 4-wheeled walker with her increasing falls. REVIEW OF SYSTEMS: Did not offer any current complaints of chest pain, shortness of breath, abdominal discomfort. She is currently on O2 and notes she was not on O2 premorbidly. She does have prior history of peripheral neuropathy she notes. Some lower extremity discomfort with her cellulitis. PHYSICAL EXAMINATION: GENERAL: A 81-year-old white female in no obvious distress. The patient is alert, pleasant. VITAL SIGNS: Last recorded temperature is 98.4, pulse 83, respirations 20, blood pressure 110/77. HEENT: Appeared to be benign. NEUROLOGIC: Cranial nerves are grossly intact. Facies are symmetric. She has nasal prong O2 in place. She has functional range of motion of both upper extremities, strength is grade 4-/5. DTRs are trace to 1. In her lower [facility] [address] [place] [address] CONSULTATION Name: JAI JIM Room #: 451-P [facility] IN ..#: [id number] Admission: 05/23/17 Attend Phys: Sorin Mathew MD Discharge: Date of : 39 Report #: [id number] extremities, she does have some erythema and discomfort with palpation. There is no focal calf swelling. Strength is probably grade 4- to 3+/5. Tone appeared to be intact. She was min assist with sit to stand and ambulated 20 feet min assist with a front-wheeled walker. ASSESSMENT: A 81-year-old white female with the following problems: 1. Frequent falls. 2. Bilateral lower extremity cellulitis. 3. History of orthostatic hypotension. 4. Adrenal insufficiency. 5. History of deep venous thrombosis. 6. Mild renal insufficiency. Diuretic are on hold. 7. Rheumatoid arthritis. 8. Bipolar depression. 9. Premorbid peripheral neuropathy. PLAN: Therapies are working with her to further improve her strength and endurance, functional mobility and ADLs. MRI of the lumbar spine is currently pending. We will be glad to follow along with you regarding her rehab therapy needs. By: [id number] Rod Arvizu MD /nt
[2017-05-23 19:01] VITALS: BP 129/50
[2017-05-23 20:20] LABS: HEMATOCRIT 33.2 % (37.0-47.0); HEMOGLOBIN 10.6 gm/dL (12.0-15.0); MCH 24.8 pg (26.0-34.0); MCHC 31.8 g/dL (28.0-37.0); PLATELET COUNT 328 thou/uL (150-400); RBC 4.25 mil/uL (4.20-5.00); RDW 20.9 % (10.5-14.5); WBC 8.6 thou/uL (4.0-11.0)
[2017-05-23 20:21] LABS: MANUAL DIFF YES
[2017-05-23 20:22] LABS: URINE BILIRUBIN NEGATIVE (Negative); URINE BLOOD NEGATIVE (Negative); URINE COLOR YELLOW; URINE GLUCOSE-RANDOM* NEGATIVE (Negative); URINE KETONES NEGATIVE (Negative); URINE NITRITE NEGATIVE (Negative); URINE PROTEIN (DIPSTICK) NEGATIVE (Negative); URINE UROBILINOGEN 0.2 E.U./dl (0.2-1.0)
[2017-05-23 20:46] LABS: ABSOLUTE NEUTROPHILS 5.1 thou/uL (1.4-8.2); ANISOCYTOSIS 1+; TOTAL CELL COUNT 100
[2017-05-23 21:45] LABS: ANION GAP 8 mmol/L (7-16); BUN 12 mg/dL (7-18); CALCIUM 9.1 mg/dL (8.5-10.1); CHLORIDE 101 mmol/L (98-107); CO2 29 mmol/L (21-32); CREATININE 1.4 mg/dL (0.6-1.0); GLUCOSE 187 mg/dL (74-106); POTASSIUM 3.2 mmol/L (3.5-5.1); SODIUM 138 mmol/L (136-145); TROPONIN-I < 0.04 ng/mL (<0.04-0.07)
[2017-05-23] MEDS ORDERED: CIPRO500 MG PO (22:04)
[2017-05-23 22:18] VITALS: BP 125/33
[2017-05-24] VITALS (9 sets, daily range): BP systolic 90–1329; BP diastolic 42–89
[2017-05-24 04:20] LABS: ALBUMIN 2.9 g/dL (3.4-5.0); ALKALINE PHOSPHATASE 54 U/L (46-116); ANION GAP 8 mmol/L (7-16); BUN 10 mg/dL (7-18); CALCIUM 8.7 mg/dL (8.5-10.1); CHLORIDE 103 mmol/L (98-107); CO2 29 mmol/L (21-32); CREATININE 1.1 mg/dL (0.6-1.0); DIRECT BILIRUBIN < 0.1 mg/dL (<0.1-0.3); GLUCOSE 169 mg/dL (74-106); NT-PRO BRAIN NAT PEPTIDE 92 pg/mL (<300); POTASSIUM 3.5 mmol/L (3.5-5.1); SGOT 19 U/L (15-37); SGPT 13 U/L (30-65); SODIUM 140 mmol/L (136-145); TOTAL BILIRUBIN 0.4 mg/dL (<0.1-1.0); TOTAL PROTEIN 5.9 g/dL (6.4-8.2)
[2017-05-24 21:06] LABS: GLYCOHEMOGLOBIN (HGB A1C) 7.9 % (4.8-5.6)
[2017-05-25] VITALS (9 sets, daily range): BP systolic 99–119; BP diastolic 35–61
[2017-05-25 11:12] LABS: HEMATOCRIT 31.4 % (37.0-47.0); HEMOGLOBIN 9.6 gm/dL (12.0-15.0); MCH 24.1 pg (26.0-34.0); MCHC 30.5 g/dL (28.0-37.0); MCV 79.1 fL (80.0-100.0); RBC 3.97 mil/uL (4.20-5.00); WBC 5.7 thou/uL (4.0-11.0)
[2017-05-25 11:18] LABS: CALCIUM 8.9 mg/dL (8.5-10.1); CREATININE 0.9 mg/dL (0.6-1.0); POTASSIUM 3.9 mmol/L (3.5-5.1)
[2017-05-26] VITALS (8 sets, daily range): BP systolic 95–127; BP diastolic 40–85
[2017-05-27] VITALS (8 sets, daily range): BP systolic 97–135; BP diastolic 44–101
[2017-05-27 21:43] LABS: FOLIC ACID 21.7 ng/mL (8.6-58.9); TSH 1.882 uIU/mL (0.358-3.740)
[2017-05-28 03:51] VITALS: BP 121/53
[2017-05-28 07:53] VITALS: BP 120/59
[2017-05-28 07:55] VITALS: BP 110/52
[2017-05-28 07:58] VITALS: BP 93/67
[2017-05-28 09:08] LABS: FREE T4 0.95 ng/dL (0.82-1.77)
[2017-05-28 11:30] VITALS: BP 109/40
[2017-05-28] MEDS ORDERED: CLEOCIN HCL150 MG PO (13:56)
[2017-05-28] MEDS ORDERED: XARELTO15 MG PO (13:56)
[2017-05-28] MEDS ORDERED: PROBIOTIC1 EAC1 PO (13:56)
[2017-05-29 04:12] LABS: GLYCOHEMOGLOBIN (HGB A1C) 7.8 % (4.8-5.6)
[2017-05-31 04:09] LABS: ALPHA TOCOPHEROL 7.2 mg/L (6.5-21.5)
== END 2017-05-28 17:50 | DRG 602 ==
LOC: ER 19:00 → EROBS 21:38 → 4W 21:38
PROVIDERS: Emergency Medicine; Internal Medicine; Nurse Practitioner Acute Care; Psychiatry & Neurology Neurology
DX: L03.119 Cellulitis of unspecified part of limb (principal); J18.9 Pneumonia, unspecified organism; N17.9 Acute kidney failure, unspecified; E27.40 Unspecified adrenocortical insufficiency; I50.30 Unspecified diastolic (congestive) heart failure; Z96.653 Presence of artificial knee joint, bilateral; Z96.612 Presence of left artificial shoulder joint; I11.0 Hypertensive heart disease with heart failure; K21.9 Gastro-esophageal reflux disease without esophagitis; F31.9 Bipolar disorder, unspecified; M06.9 Rheumatoid arthritis, unspecified; Z96.641 Presence of right artificial hip joint; H40.9 Unspecified glaucoma; E87.6 Hypokalemia; S09.90XA Unspecified injury of head, initial encounter; G62.9 Polyneuropathy, unspecified; R73.9 Hyperglycemia, unspecified; Z79.51 Long term (current) use of inhaled steroids; Z79.82 Long term (current) use of aspirin; Z90.710 Acquired absence of both cervix and uterus; Z90.49 Acquired absence of other specified parts of digestive tract; Z98.42 Cataract extraction status, left eye; Z98.41 Cataract extraction status, right eye; Z86.718 Personal history of other venous thrombosis and embolism; Z88.1 Allergy status to other antibiotic agents; Z88.2 Allergy status to sulfonamides; Z83.3 Family history of diabetes mellitus; Z79.899 Other long term (current) drug therapy
CPT/HCPCS: 10045

== ENCOUNTER 2018-09-13 07:31 | Emergency (ER) | payer OTHER ==
[~2018-09-13] VITALS: Ht 157.5 cm; Wt 81.7 kg
[~2018-09-13 07:31] MED LIST changes: +CIPRO500 MG PO; +CLEOCIN HCL150 MG PO; +XARELTO15 MG PO
[2018-09-13 08:40] LABS: ABSOLUTE NEUTROPHILS 5.4 thou/uL (1.4-8.2); EOSINOPHILS 2.5 % (0.0-3.0); HEMATOCRIT 33.8 % (37.0-47.0); HEMOGLOBIN 11.1 gm/dL (12.0-15.0); LYMPHOCYTES 22.1 % (24.0-44.0); MCH 26.6 pg (26.0-34.0); MCHC 32.7 g/dL (28.0-37.0); MCV 81.5 fL (80.0-100.0); MONOCYTES 8.2 % (1.0-8.0); PLATELET COUNT 276 thou/uL (150-400); POLYS 66.2 % (36.0-66.0); RBC 4.15 mil/uL (4.20-5.00); RDW 23.3 % (10.5-14.5); WBC 8.1 thou/uL (4.0-11.0)
[2018-09-13 08:48] LABS: URINE BILIRUBIN NEGATIVE (Negative); URINE BLOOD NEGATIVE (Negative); URINE CLARITY CLEAR; URINE COLOR YELLOW; URINE GLUCOSE-RANDOM* NEGATIVE (Negative); URINE KETONES NEGATIVE (Negative); URINE NITRITE-REFLEX NEGATIVE (Negative); URINE PROTEIN (DIPSTICK) NEGATIVE (Negative); URINE UROBILINOGEN 0.2 E.U./dl (0.2-1.0)
[2018-09-13 08:52] LABS: CALCIUM 9.6 mg/dL (8.5-10.1); POTASSIUM 3.9 mmol/L (3.5-5.1)
[2018-09-13 08:53] LABS: URINE LEUKOCYTES-REFLEX TRACE (Negative)
[2018-09-13 08:57] LABS: ALBUMIN 3.2 g/dL (3.4-5.0); TOTAL BILIRUBIN 0.4 mg/dL (<0.1-1.0); TOTAL PROTEIN 6.3 g/dL (6.4-8.2)
[2018-09-13 09:11] LABS: ANISOCYTOSIS 3+; MACROCYTES 1+; MICROCYTES 1+; OVALOCYTES 1+; POLYCHROMASIA SLIGHT
[2018-09-13 09:45] VITALS: BP 111/28
== END 2018-09-13 12:22 | disposition home or self-care (01) ==
LOC: ER 07:31
PROVIDERS: Emergency Medicine
DX: S30.0XXA Contusion of lower back and pelvis, initial encounter (principal); R53.1 Weakness; K21.9 Gastro-esophageal reflux disease without esophagitis; I95.1 Orthostatic hypotension; F31.9 Bipolar disorder, unspecified; M19.90 Unspecified osteoarthritis, unspecified site; I11.0 Hypertensive heart disease with heart failure; I50.30 Unspecified diastolic (congestive) heart failure; Z96.641 Presence of right artificial hip joint; Z86.718 Personal history of other venous thrombosis and embolism; Z88.2 Allergy status to sulfonamides; Z91.048 Other nonmedicinal substance allergy status; Z88.1 Allergy status to other antibiotic agents; Z96.653 Presence of artificial knee joint, bilateral; Z96.612 Presence of left artificial shoulder joint; Z90.710 Acquired absence of both cervix and uterus; Z90.49 Acquired absence of other specified parts of digestive tract; Z86.2 Personal history of diseases of the blood and blood-forming organs and certain disorders involving the immune mechanism; W18.39XA Other fall on same level, initial encounter; Y92.89 Other specified places as the place of occurrence of the external cause; Y93.89 Activity, other specified; Y99.8 Other external cause status

== ENCOUNTER 2018-11-13 10:07 | Inpatient (IN) | payer OTHER ==
[~2018-11-13] VITALS: Ht 154.9 cm; Wt 81.6 kg
[~2018-11-13 10:07] MED LIST changes: -CALCIUM 500 +1 EAC5 PO; +ELEMENTAL CALC600 MG PO; -OXYBUTYNIN 5 MG5 M2 PO; +OXYBUTYNIN ER 55 M1 PO; -TIMOLOL MA0.25 %/5 M OTIC; +TIMOLOL MA0.25 %/52 OPHTHALMIC; -TRAZODONE 150150 M1 PO; +TRAZODONE HCL50 MG PO
[2018-11-13 10:08] VITALS: BP 134/47
[2018-11-13 10:32] LABS: ABSOLUTE NEUTROPHILS 8.3 thou/uL (1.4-8.2); BASOPHILS 0.7 % (0.0-2.0); EOSINOPHILS 2.2 % (0.0-3.0); HEMATOCRIT 36.7 % (37.0-47.0); HEMOGLOBIN 11.4 gm/dL (12.0-15.0); LYMPHOCYTES 19.9 % (24.0-44.0); MCH 25.2 pg (26.0-34.0); MCV 81.2 fL (80.0-100.0); MONOCYTES 9.4 % (1.0-8.0); PLATELET COUNT 267 thou/uL (150-400); POLYS 67.8 % (36.0-66.0); RBC 4.52 mil/uL (4.20-5.00); RDW 20.2 % (10.5-14.5); WBC 12.2 thou/uL (4.0-11.0)
[2018-11-13 10:36] LABS: CALCIUM 9.4 mg/dL (8.5-10.1); CREATININE 1.1 mg/dL (0.6-1.0); POTASSIUM 3.7 mmol/L (3.5-5.1)
--- NOTE | 2018-11-13 10:36 | NUR ---
UNABLE TO SCAN FENTANYL, PHARMACY CALLED. WILL FIX
[2018-11-13 10:44] LABS: ALBUMIN 3.6 g/dL (3.4-5.0); TOTAL BILIRUBIN 0.4 mg/dL (<0.1-1.0); TOTAL PROTEIN 7.1 g/dL (6.4-8.2)
[2018-11-13 11:08] LABS: URINE BILIRUBIN NEGATIVE (Negative); URINE BLOOD NEGATIVE (Negative); URINE CLARITY SL HAZY; URINE COLOR YELLOW; URINE GLUCOSE-RANDOM* NEGATIVE (Negative); URINE KETONES NEGATIVE (Negative); URINE LEUKOCYTES-REFLEX NEGATIVE (Negative); URINE NITRITE-REFLEX NEGATIVE (Negative); URINE PROTEIN (DIPSTICK) NEGATIVE (Negative); URINE SPECIFIC GRAVITY >= 1.030 (1.005-1.035); URINE UROBILINOGEN 0.2 E.U./dl (0.2-1.0)
[2018-11-13 11:17] LABS: ANISOCYTOSIS 1+; OVALOCYTES 1+; PLATELET ESTIMATE NORMAL
[2018-11-13 12:04] LABS: BE(vivo) 2.1 mmol/L (-2 to +3); HCO3 25.8 mmol/L (22.0-26.0); pH 7.462 (7.360-7.450); sO2 93.1 % (92.0-98.0)
[2018-11-13 12:20] VITALS: BP 120/48
[2018-11-13 12:52] VITALS: BP 120/48
--- NOTE | 2018-11-13 13:44 | NUR ---
ASSESSMENT-PT LIVES IN ASSISTED LIVING AT [facility]. PT USES A ROLLER WALKER TO GET AROUNF AND SHE TAKES HER OWN SHOWER. PT SAYS SHE GOES TO THE DINING AREA FOR HER MEALS. THE FACILITY GIVES PT HER MEDICATIONS. 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 PT SAYS SHE HAS MARLEY IN REHAB AT [facility] IN HTE PAST. FOLLOWING TO ASSIST WITH DC PLANNING.
[2018-11-13] MEDS ORDERED: XARELTO20 MG PO (13:50)
[2018-11-13] MEDS ORDERED: IPRAT-ALBUT 0.5-3 ML INH (13:53)
[2018-11-13] MEDS ORDERED: APAP650 PO (13:58)
[2018-11-13] MEDS ORDERED: DULCOLAX5 MG PO (13:59)
[2018-11-13] MEDS ORDERED: ARICEPT10 M1 PO (13:59)
[2018-11-13] MEDS ORDERED: LASIX 40 MG TAB40 M2 PO ×2 (14:00)
[2018-11-13] MEDS ORDERED: KLOR-CON 1010 MEQ PO (14:01)
[2018-11-13] MEDS ORDERED: JANUVIA100 MG PO (14:01)
[2018-11-13] MEDS ORDERED: VITAMIN B-12500 MCG PO (14:02)
[2018-11-13] MEDS ORDERED: PROPRANOLOL 4040 M1 PO (14:02)
[2018-11-13 15:50] VITALS: BP 120/52
--- NOTE | 2018-11-13 16:19 | EKG ---
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: PRACHI : [id number] Requested By: Wes Delcid Order Number: [id number] MD: Keven Sheehan Measurements Intervals Joanna Rate: 71 P: 61 AL: 60 QRS: -6 QRSD: 85 T: 99 QT: 369 QTc: 401 Interpretive Statements Sinus rhythm Frequent premature ventricular complexes Abnormal T, consider ischemia, lateral leads Compared to ECG 05/23/2017 20:03:16 Ventricular premature complex(es) now present T-wave abnormality now present Electronically Signed On 11-13-2018 16:19:30 LOOM OPERATOR by Keven Sheehan [email or web address] <ELECTRONICALLY SIGNED> By: Keven Sheehan MD, [facility] 11/13/18 1619 1159 [id number] Keven Sheehan MD, [facility] /EPI
--- NOTE | 2018-11-13 16:35 | NUR ---
83 YO FEMALE ADMITTED TO 421 BY CART FROM ER, A&OX4, IV INTACT IN R FA. USING BED DIANA RATHER THAN AMBULATING AT THIS TIME. ORIENTED PT TO ROOM/CALL LIGHT, ASSESSMENT COMPLETE.
[2018-11-13 20:07] VITALS: BP 140/77
[2018-11-14 05:38] VITALS: BP 137/51
[2018-11-14 05:47] LABS: HEMOGLOBIN 10.6 gm/dL (12.0-15.0); MCH 25.1 pg (26.0-34.0); MCHC 31.3 g/dL (28.0-37.0); MCV 80.2 fL (80.0-100.0); PLATELET COUNT 246 thou/uL (150-400); RBC 4.24 mil/uL (4.20-5.00); RDW 20.4 % (10.5-14.5); WBC 9.3 thou/uL (4.0-11.0)
[2018-11-14 06:06] LABS: ANION GAP 10 mmol/L (7-16); BUN 13 mg/dL (7-18); CALCIUM 8.6 mg/dL (8.5-10.1); CHLORIDE 103 mmol/L (98-107); CO2 26 mmol/L (21-32); GLUCOSE 112 mg/dL (74-106); MAGNESIUM 1.7 mg/dL (1.8-2.4); POTASSIUM 3.6 mmol/L (3.5-5.1); SODIUM 139 mmol/L (136-145); TROPONIN-I <0.06 ng/mL (<0.06)
[2018-11-14 06:28] LABS: ABSOLUTE NEUTROPHILS 5.4 thou/uL (1.4-8.2)
[2018-11-14 06:31] LABS: ANISOCYTOSIS 2+; PLATELET ESTIMATE NORMAL; POLYCHROMASIA 1+
[2018-11-14 07:05] VITALS: BP 110/43
--- NOTE | 2018-11-14 07:43 | NUR ---
ASSUMED CARE AT 1900, ASSESSMENT COMPLETED. PT C/O SEVERE PAIN IN RIGHT KNEE, WORSE WITH TOUCH OR MOVEMENT. DENIED NAUSEA. DENIED SOB, BUT HAD NOTICEABLE CRACKLES IN BOTH LUNG BASES AND HAS BEEN COUGHING UP GREEN SPUTUM MOST OF THE NIGHT; SOME OF HER COUGHING/SPITTING MAY BE BEAHVIORAL/PSYCH MED-RELATED. PT NOTED TO STRUGGLE GETTING SOME PILLS DOWN, HAVING TO SPIT THEM OUT AND START OVER, AND THEN LATER COUGHED AND CHOKED WHILE DRINKING WATER WITH HER PILLS. RECOMMEND A SPEECH EVAL. INCONT OVERNIGHT, LIMITED HELP WITH TURNS. IV IN RIGHT FOREARM INFILTRATED, RESTARTED A NEW IV IN THE LEFT HAND. PT WAS FEBRILE OVERNIGHT, WITH MAX TEMP OF 101, GAVE TYLENOL ONCE. NO OTHER CONCERNS, SHIFT REPORT GIVEN AT 0700.
[2018-11-14 08:09] VITALS: BP 110/43
[2018-11-14 08:12] VITALS: BP 112/45
--- NOTE | 2018-11-14 08:46 | NUR ---
PT A&0X3-4, FORGETFUL, INTERRUPTS WHEN ASKING QUESTIONS, C/O PAIN R KNEE, NEW, CHRONIC PAIN LOWER BACK, AND LEFT SHOULDER, SPITTING UP BEIGE MUCUS, STATES THIS IS ALSO CHRONIC, WHEN ASKED TO DO SLOW DEEP INHALATIONS/EXHALATIONS C/O PAIN EVERYWHERE AND SHE DOESN'T WANT TO, EDUCATION GIVEN ON STASIS IN LUNGS/PNEU, SHE INTERRUPTS AND STATES I KNOW. RA, DOESN'T LIKE OUR FOOD, ENCOURAGED TO EAT SOMETHING TO HELP WITH HEALING, BLOWS NOSE HARD AND THERE IS NOTHING COMING OUT. ENCOURAGED HER TO USE CALL LIGHT FOR ANY NEEDS
[2018-11-14 16:45] VITALS: BP 114/36
--- NOTE | 2018-11-14 16:58 | NUR ---
PT'S MUCH MORE AGREEABLE W/CARES/TURNS. KEEPING PAIN MEDICATION CURRENT. MENTIONS TAKING JANUVIA AND NO INSULIN WHERE SHE LIVES. PHYSICIAN ORDERED INSULIN AND BG CHECKS. SHE STATES SHE WILL NOT TAKE THE INSULIN, EDUCATION GIVEN ON HOW WE MONITOR MOST EVERYONE THIS WAY AND WHAT PART INSULIN PLAYS IN PICKING UP EXCESS SUGAR. USES CALL LIGHT FOR NEEDS, TWO ASSIST IN TURNS, MAX FOR SETTING UP IN ANOTHER CHAIR. THERAPY STATES UP ONLY ABOUT THREE MIN
[2018-11-14 19:36] VITALS: BP 114/45
[2018-11-15 04:08] VITALS: BP 112/52
--- NOTE | 2018-11-15 04:08 | NUR ---
ASSUMED CARE AT 1900, ASSESSMENT AND VS COMPLETED. PT MORE ALERT THIS SHIFT, PLEASANT AND TALKING WITH STAFF, PARTICULAR WITH CARES. ASKED ABOUT HER MEDICATIONS AND WHEN SHE WOULD TAKE THEM. 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 DENIES SOB, BUT HAS CRACKLES IN THE LOWER LUNGS; SHALLOW BREATHING, ENCOURAGED DEEP BREATHING TO IMPROVE O2 SATS TO MID 90'S. SEEMS TO BE COUGHING UP LESS DRAINAGE/SPUTUM SINCE STARTING MUCINEX. 2+ EDEMA BLE, R>L, LARGE AMOUNT OF URINE OUT OVERNIGHT. HS ACCUCHECK 158, PT REFUSED ANY INSULIN. CONTINUES TO COMPLAIN OF SEVERE PAIN IN RIGHT KNEE, ESPECIALLY IF TOUCHED OR MOVED; EXPRESSED CONCERN THAT "THEY XRAYED MY KNEE, BUT NOT MY ANKLR OR FOOT." STATES "WATCH THE NEUROPATHY!" WHEN TOUCHING CALF AND ANKLE. NEEDS THERAPY TO WORK WITH HER ON ACTUALLY GETTING OUT OF BED. NO OTHER CONCERNS, WILL CONTINUE TO MONITOR.
--- NOTE | 2018-11-15 09:08 | NUR ---
ASSESMENT COMPLETED. VSS. A/O. PAIN MANAGED BY MEDS ORDERED. NO NOTED SOA. NO NV. PT RESTING IN BED AT THIS TIME EATING BREAKFAST. MEDS GIVEN ORDERED TOLERATED WELL. VOIDS PER BEDPAN. CALL LIGHT IN REACH. WILL CONT. TO MONITOR.
[2018-11-15 09:24] VITALS: BP 107/39
[2018-11-15 17:13] VITALS: BP 117/53
[2018-11-15 19:05] VITALS: BP 117/39
[2018-11-16 03:32] VITALS: BP 125/41
--- NOTE | 2018-11-16 05:36 | NUR ---
voiding small amounts at a time per bedpan. bladderscan done = 600 ml. refused straight cath, said that retention due to laying in bed to void but does not want to use BSC. Aqua K pad for right knee discomfort.
[2018-11-16 07:29] VITALS: BP 119/40
--- NOTE | 2018-11-16 12:40 | NUR ---
FAXED REFERRAL TO [facility] SPOKE WITH BRITTNY IN ADM. SHE RECEIVED REFERRAL AND WILL REVIEW. DCP WAITING ON OT TO SEE PT. TO FAX NOTES TO [facility]. DCP TO FOLLOW.
[2018-11-16 17:02] VITALS: BP 126/32
[2018-11-16 19:40] VITALS: BP 151/7
--- NOTE | 2018-11-17 04:34 | NUR ---
PT DENIED PAIN SO FAR.UP WITH ASSIST X1 T BSC.PT ALERT WITH CONFUSION.CONT ON IVF ORDERED.PT'S BP ELEVATED,MED ADMINISTERED.PT RESTING ON HER BED AT THIS TIME.FALL PRECAUTIONS IN PLACE,CALL LIGHT WITHIN REACH.
[2018-11-17 04:50] VITALS: BP 125/48
[2018-11-17 07:25] VITALS: BP 117/51
[2018-11-17] MEDS ORDERED: HYDROCODONE-AP1 EAC6 PO (12:53)
--- NOTE | 2018-11-17 13:04 | NUR ---
Assumed pt care at 7am.Pt in bed resting and wanted to know when she can have pain med for right knee.Assessment completed.vss.pain med given with am med and well tolerated.Pt ambulated in hallways with therapist later this morning, good endurance noted.Dr De Jesus rounded on pt later this afternoon and dc order noted.Pt will be dc to assisted living this afternoon.Will continue to monitor.
--- NOTE | 2018-11-17 13:04 | NUR ---
PT. DISCHARGING TODAY TO [facility]. FAXED DC ORDERS/SUMMARY TO FACILITY AND SPOKE WITH BRITTNY SHE RECEIVED DC ORDERS AND ARRANGED TRANSPORTATION VIA [facility] FOR [phone]. DCP NOTIFIED [facility] ([facility]) OF DISCHARGE AND TIME OF TRANSPORT. UNIT NOTIFIED AND CHART COPY PER US. RN TO CALL REPORT TO [phone].
[2018-11-17 14:32] VITALS: BP 117/51
== END 2018-11-17 16:40 | DRG 683 ==
LOC: ER 10:07 → 4E 12:27 → EROBS 12:27 → 4E 12:52
PROVIDERS: Nurse Practitioner; ADMIT Hospitalist
DX: N17.9 Acute kidney failure, unspecified (principal); E27.40 Unspecified adrenocortical insufficiency; I13.0 Hypertensive heart and chronic kidney disease with heart failure and stage 1 through stage 4 chronic kidney disease, or unspecified chronic kidney disease; I50.30 Unspecified diastolic (congestive) heart failure; M25.562 Pain in left knee; M25.561 Pain in right knee; F31.9 Bipolar disorder, unspecified; M06.9 Rheumatoid arthritis, unspecified; Z96.612 Presence of left artificial shoulder joint; H40.9 Unspecified glaucoma; G89.29 Other chronic pain; M54.9 Dorsalgia, unspecified; Z66 Do not resuscitate; R26.9 Unspecified abnormalities of gait and mobility; N18.9 Chronic kidney disease, unspecified; K21.9 Gastro-esophageal reflux disease without esophagitis; R09.02 Hypoxemia; Z96.641 Presence of right artificial hip joint; W18.39XA Other fall on same level, initial encounter; Z96.653 Presence of artificial knee joint, bilateral; Z90.710 Acquired absence of both cervix and uterus; Z90.49 Acquired absence of other specified parts of digestive tract; Z86.718 Personal history of other venous thrombosis and embolism; Z98.41 Cataract extraction status, right eye; Z98.42 Cataract extraction status, left eye; Z79.82 Long term (current) use of aspirin; Z79.899 Other long term (current) drug therapy; Z88.2 Allergy status to sulfonamides; Z88.1 Allergy status to other antibiotic agents; Y93.89 Activity, other specified; Y92.89 Other specified places as the place of occurrence of the external cause; Y99.8 Other external cause status; Z83.3 Family history of diabetes mellitus; Z79.52 Long term (current) use of systemic steroids
CPT/HCPCS: 10183; 10783